=== PATIENT | female | born 1985 | race Two or more races ===

== ENCOUNTER 2023-09-09 08:54 | Observation (INO) | payer MEDICAID ==
[~2023-09-09] VITALS: Ht 157.5 cm; Wt 69.9 kg
[2023-09-09] MEDS: TERBUTALINE SULFATE 1 MG/ML 1ML VIAL SC SCH ×3 (11:43→12:37)
[2023-09-09] MEDS ORDERED: PREN-96 PO (11:51)
[2023-09-09] MEDS ORDERED: NIF10C PO (11:51)
[2023-09-09] MEDS ORDERED: NITR-87 PO (12:43)
[2023-09-09] MEDS ORDERED: ONDANSETRON ODT 4 MG TAB PO ONE ×3 (12:45→13:00)
[2023-09-09] MEDS ORDERED: ZOFR4T PO (13:14)
== END 2023-09-09 13:29 | disposition home or self-care (01) ==
LOC: LDRP 08:54 → UNDOADMOB 08:54 → LDRP 09:06 → UNDODISOB 13:29
PROVIDERS: ADMIT Obstetrics & Gynecology; ATTEND Obstetrics & Gynecology
DX: O40.3XX0 Polyhydramnios, third trimester, not applicable or unspecified (principal); O23.43 Unspecified infection of urinary tract in pregnancy, third trimester; O09.523 Supervision of elderly multigravida, third trimester; O62.9 Abnormality of forces of labor, unspecified; O99.891 Other specified diseases and conditions complicating pregnancy; M54.9 Dorsalgia, unspecified; Z3A.29 29 weeks gestation of pregnancy
CPT/HCPCS: 59025; 76815; 81002; 94760; 96372; G0378; J3105